=== PATIENT | male | born 1940 | race Caucasian/White ===

== ENCOUNTER 2018-10-31 09:11 | Inpatient (IN) ==
--- NOTE | 2018-10-31 09:16 | Emergency Department Note ---
Disposition Clinical Impression: Hypoxia Pneumonia Qualifiers: Pneumonia type: due to unspecified organism Laterality: right Lung location: unspecified part of lung Qualified Code(s): J18.9 - Pneumonia, unspecified org anism Disposition: Admitted As Inpatient Condition: Fair Referrals: Zain Salgado MD [Primary Care Provider] - Forms: ED Satisfaction Letter Time of Disposition: 11:08 General Adult HPI - General Stated complaint: SAMI,Shaking Time Seen by Provider: 10/31/18 09:15 Source: patient Mode of arrival: ambulatory Limitations: no limitations Nursing Notes Reviewed: Yes Vital Signs Reviewed: Yes - History of Present Illness HPI Narrative: Patient is a 78-year-old male who is presenting with shortness of breath. Sarah ent with known history of hypertension, CHF and hyperlipidemia. Patient states for the past 3 days he has been having cough without production, no fevers or chills. This morning he woke up and became very short of breath, this is positional as well as exertional, no associated chest pain. He did take a breathing treatment which seemed to help. He states that after this he became very jittery and shaky. He denies any lower leg swelling. He denies any nausea, vomiting or abdominal pain. No urinary or bowel changes. He does have history of bronchitis in the past, no history of smoking. No recent steroid or antibiotic use. No oxygen use at home. - Related Data Home Medications Medication Instructions Recorded Confirmed Albuterol Sulfate [Proair Hfa] 2 puff IH Q4H PRN 07/09/16 07/09/16 Amlodipine Besylate 10 mg PO 07/09/16 Aspirin [Lo-Dose Aspirin EC] 81 mg PO DAILY 07/09/16 07/09/16 Lactulose 10 - 20 gm PO DAILY 07/09/16 07/09/16 Morphine Sulfate ER (24 HR) 60 mg PO Q12H 07/09/16 07/09/16 [Morphine Sulfate ER] OxyCODONE/APAP 10/325 [Percocet 1 each PO Q6H PRN 07/09/16 07/09/16 10/325 MG] Zolpidem Tartrate 5 mg PO HS PRN 07/09/16 07/09/16 Allergies Allergy/AdvReac Type Severity Reaction Status Date / Time No Known Allergies Allergy Verified 10/09/17 23:06 All systems ED: reviewed and negative except as stated. Review of Systems: As Per HPI Constitutional: Denies: fever, chills, weakness Cardiovascular: Reports: dyspnea on exertion. Denies: chest pain, palpitations, syncope Respiratory: Reports: cough, dyspnea. Denies: wheezes, hemoptysis, sputum production Gastrointestinal: Denies: abdominal pain, nausea, vomiting Genitourinary: Denies: urgency Musculoskeletal: Denies: back pain Integumentary: Denies: rash Neurological: Denies: headache, weakness, confusion Endocrine: Denies: fatigue Past Medical History - Past Medical History Medical history: Reports: arthritis, COPD, hypertension, other Surgical history: Reports: orthopedic, other (Right knee arthroscopy; Left knee arthroscopy/total left knee replacement 2005; C5-C6 discectomy 2004; Left biceps tendon repair 2008) Psychiatric history: Reports: no psych history - Social History Smoking Status: Never smoker Smokeless Tobacco Status: No Alcohol use: Reports: none Drug use: Reports: none Physical Exam - General Limitations: no limitations General appearance: alert, in no apparent distress - Head Head exam: atraumatic, normocephalic, normal inspection - Eye Eye exam: Present: normal appearance, PERRL, EOMI - ENT ENT exam: normal exam, normal oropharynx, mucous membranes moist - Neck Neck exam: Present: normal inspection, full ROM, trachea midline - Chest Chest inspection: Present: normal inspection, symmetric chest wall rise - Respiratory Respiratory exam: Present: normal lung sounds bilaterally - Cardiovascular Cardiovascular exam: Present: normal rhythm, tachycardia - Abdominal Exam Abdominal exam: Present: soft, Non-Tender. Absent: tenderness, distention, guarding, rebound, rigidity - Extremities Exam Extremities exam: Present: normal capillary refill, pedal edema (1+ pitting edema to the lower extremities). Absent: calf tenderness - Expanded Lower Extremity Exam Neurovascular/Tendon exam: Absent: motor deficit, sensory deficit, tendon deficit - Neurological Exam Neurological exam: Present: alert, oriented X3 - Psychiatric Psychiatric exam: Present: normal affect, normal mood - Skin Skin exam: Present: warm, dry, intact, normal color Course Vital Signs Temperature 100.9 F H 10/31/18 09:17 Pulse Rate 126 10/31/18 09:17 Respiratory Rate 20 10/31/18 09:17 Blood Pressure 137/70 10/31/18 09:17 O2 Sat by Pulse Oximetry 94 10/31/18 09:17 Temperature 100.9 F H 10/31/18 09:17 Pulse Rate 110 10/31/18 10:26 Respiratory Rate 20 10/31/18 10:26 Blood Pressure 123/65 10/31/18 10:26 O2 Sat by Pulse Oximetry 93 10/31/18 10:26 Oxygen Delivery Oxygen Delivery Nasal Cannula Medical Decision Making - [facility] Narrative Medical decision making narrative: Patient is a 78-year-old male who is presenting with shortness of breath. On arrival, patient is tachycardic with a fever of 100.9. Otherwise in no acute distress. Patient does say he has a history of congestive heart failure for this reason we will proceed slowly with fluids, he will be given 500 mL at this time. Patient was also given a gram of Tylenol. On examination, patient is tachycardic but otherwise clear to auscultation bilaterally in no acute distress. Alert and oriented 3. Initial suspicion for pneumonia, versus ACS. CBC, BMP, troponin, chest x-ray, blood cultures, lactic and d-dimer were performed. While here in the ER, patient was sat up and walked to the restroom, at that point in time he would desaturate to 86% while on 2 L nasal cannula, as he does not wear oxygen at home, this is concerning. With 3 L nasal cannula, patient is now satting at 91-92%. Laboratory shows slight leukocytosis at 13.5, otherwise unremarkable with a negative troponin. EKG shows no acute ischemic changes. Chest x-ray does show concern for bilateral bronchopneumonia grease on the right than the left. Patient was started on azithromycin as well as Rocephin. No recent hospitalizations. Patient does agree to admission at this point in time. A second bolus of 500 and also was given. At this point in time, patient will be admitted to the hospitalist. They have accepted the patient at 1108. - Medical Records Medical records reviewed: Yes I reviewed the patient's medical records. - Lab Data Lab results reviewed: Yes I reviewed the patient's lab results. Result diagrams: 10/31/18 09:38 10/31/18 09:38 Lab Results 10/31/18 10/31/18 10/31/18 Range/Units 09:38 09:38 09:38 WBC 13.5 H (4.3-11.1) K/mcL RBC 4.71 (4.19-5.50) M/mcL Hgb 14.3 (12.9-16.9) g/dL Hct 43.6 (37.5-50.1) % MCV 92.6 (83.0-100.0) fL MCH 30.4 (28.0-33.3) pg MCHC 32.8 (31.6-35.5) g/dL RDW 14.2 (11.5-14.5) % Plt Count 145 (140-400) K/mcL MPV 11.8 (9.4-12.4) fL Immature Gran % 0.3 (0-4) % Seg Neutrophils % 89.1 % Lymphocytes % 4.2 % Monocytes % 6.0 % Eosinophils % 0.1 % Basophils % 0.3 % Neutrophils # 12.0 H (1.6-8.9) K/mcL Lymphocytes # 0.6 (0.6-4.6) K/mcL Monocytes # 0.8 (0.0-1.3) K/mcL Eosinophils # 0.0 (0.0-0.6) K/mcL Basophils # 0.0 (0.0-0.2) K/mcL D-Dimer (0-500) ng/mLFEU Sodium 141 (136-145) mEq/L Potassium 3.7 (3.5-5.1) mEq/L Chloride 107 (98-107) mEq/L Carbon Dioxide 25 (23-29) mEq/L BUN 21 (8-23) mg/dL Creatinine 1.08 (0.70-1.30) mg/dL Est GFR ( Amer) > 60 (> 60) Est GFR (Non-Af Amer) > 60 (> 60) BUN/Creatinine Ratio 19 (6-26) Glucose 123 H (70-105) mg/dL Calculated Osmolality 296 (280-300) Lactic Acid 1.2 (0.5-2.2) mmol/L Calcium 8.7 (8.6-10.3) mg/dL Total Bilirubin 0.9 (0.3-1.0) mg/dL Direct Bilirubin 0.2 (0.0-0.2) mg/dL Indirect Bilirubin 0.7 (0.0-1.2) mg/dL AST 18 (13-39) Units/L ALT 15 (7-52) Units/L Alkaline Phosphatase 28 L (34-104) Units/L Ammonia (16-53) mcmol/L Troponin I < 0.03 (< 0.04) ng/mL Serum Total Protein 6.8 (6.4-8.9) g/dL Albumin 3.9 (3.5-5.7) g/dL Globulin 2.9 (2.4-3.5) g/dL Albumin/Globulin Ratio 1.3 (1.1-2.2) Urine Color (Yellow) Urine Clarity (Clear) Urine pH (5.0-8.0) pH Units Ur Specific [place] (1.010-1.025) Urine Protein (Neg-Trace) mg/dL Urine Glucose (UA) (Normal) mg/dL Urine Ketones (Negative) mg/dL Urine Blood (Negative) Urine Nitrite (Negative) Urine Bilirubin (Negative) Urine Urobilinogen (Normal) mg/dL Ur Leukocyte Esterase (Negative) 10/31/18 10/31/18 10/31/18 Range/Units 09:38 09:38 09:57 WBC (4.3-11.1) K/mcL RBC (4.19-5.50) M/mcL Hgb (12.9-16.9) g/dL Hct (37.5-50.1) % MCV (83.0-100.0) fL MCH (28.0-33.3) pg MCHC (31.6-35.5) g/dL RDW (11.5-14.5) % Plt Count (140-400) K/mcL MPV (9.4-12.4) fL Immature Gran % (0-4) % Seg Neutrophils % % Lymphocytes % % Monocytes % % Eosinophils % % Basophils % % Neutrophils # (1.6-8.9) K/mcL Lymphocytes # (0.6-4.6) K/mcL Monocytes # (0.0-1.3) K/mcL Eosinophils # (0.0-0.6) K/mcL Basophils # (0.0-0.2) K/mcL D-Dimer 525 H (0-500) ng/mLFEU Sodium (136-145) mEq/L Potassium (3.5-5.1) mEq/L Chloride (98-107) mEq/L Carbon Dioxide (23-29) mEq/L BUN (8-23) mg/dL Creatinine (0.70-1.30) mg/dL Est GFR ( Amer) (> 60) Est GFR (Non-Af Amer) (> 60) BUN/Creatinine Ratio (6-26) Glucose (70-105) mg/dL Calculated Osmolality (280-300) Lactic Acid (0.5-2.2) mmol/L Calcium (8.6-10.3) mg/dL Total Bilirubin (0.3-1.0) mg/dL Direct Bilirubin (0.0-0.2) mg/dL Indirect Bilirubin (0.0-1.2) mg/dL AST (13-39) Units/L ALT (7-52) Units/L Alkaline Phosphatase (34-104) Units/L Ammonia 40 (16-53) mcmol/L Troponin I (< 0.04) ng/mL Serum Total Protein (6.4-8.9) g/dL Albumin (3.5-5.7) g/dL Globulin (2.4-3.5) g/dL Albumin/Globulin Ratio (1.1-2.2) Urine Color Yellow (Yellow) Urine Clarity Clear (Clear) Urine pH 5.0 (5.0-8.0) pH Units Ur Specific [place] 1.027 H (1.010-1.025) Urine Protein Negative (Neg-Trace) mg/dL Urine Glucose (UA) Normal (Normal) mg/dL Urine Ketones Negative (Negative) mg/dL Urine Blood Negative (Negative) Urine Nitrite Negative (Negative) Urine Bilirubin Negative (Negative) Urine Urobilinogen Normal (Normal) mg/dL Ur Leukocyte Esterase Negative (Negative) - Radiology Data Radiology results reviewed: Yes I reviewed the patient's radiology results. Chest X-Ray 10/31/18 09:33 IMPRESSION: 1. Stable mild pulmonary hyperinflation which may relate to COPD. 2. Bilateral asymmetric mild peribronchial opacities suggesting bronchopneumonia more prominent on the right. No lobar pneumonia. 3. Stable calcified pleural plaques on the left which may relate to history of asbestos exposure or possible trauma. D/ / 10/31/2018 10:51:50 Gordon Andino MD / [facility] Interpreting Provider: Gordon Andino MD - EKG Data EKG #1 EKG attestation: Yes I reviewed and interpreted this EKG. EKG results narrative: Patient's EKG performed at 0 925 ventricular rate of 117, regular rhythm, normal axis, no ST segment elevation or depression, there are T-wave changes in lead V5 and V6 which are new from old EKG performed at 2017.
[2018-10-31] MEDS ORDERED: 0.9 % Sodium Chloride 500 ML IVC ONE ×2 (09:35→10:51)
[2018-10-31 09:54] LABS: Basophils % 0.3 %; Eosinophils % 0.1 %; Hematocrit 43.6 % (37.5-50.1); Hemoglobin 14.3 g/dL (12.9-16.9); Immature Granulocytes % 0.3 % (0-4); Lymphocytes # 0.6 K/mcL (0.6-4.6); Lymphocytes % 4.2 %; Mean Corpuscular HGB Conc 32.8 g/dL (31.6-35.5); Mean Corpuscular Hemoglobin 30.4 pg (28.0-33.3); Mean Corpuscular Volume 92.6 fL (83.0-100.0); Mean Platelet Volume 11.8 fL (9.4-12.4); Monocytes # 0.8 K/mcL (0.0-1.3); Platelet Count 145 K/mcL (140-400); Red Blood Count 4.71 M/mcL (4.19-5.50); Red Cell Distribution Width 14.2 % (11.5-14.5); Segmented Neutrophils % 89.1 %; White Blood Count 13.5 K/mcL (4.3-11.1)
[2018-10-31 10:23] LABS: Bilirubin,Urine Negative (Negative); Blood,Urine Negative (Negative); Clarity,Urine Clear (Clear); Color,Urine Yellow (Yellow); Glucose,Urine (UA) Normal (Normal); Ketones,Urine Negative (Negative); Leukocyte Esterase,Urine Negative (Negative); Nitrite,Urine Negative (Negative); Protein,Urine Negative (Neg-Trace); Specific Gravity,Urine 1.027 (1.010-1.025); Urobilinogen,Urine Normal (Normal)
[2018-10-31 10:26] LABS: Alanine Aminotransferase 15 Units/L (7-52); Albumin 3.9 g/dL (3.5-5.7); Albumin/Globulin Ratio 1.3 (1.1-2.2); Alkaline Phosphatase 28 Units/L (34-104); Aspartate Amino Transferase 18 Units/L (13-39); BUN/Creatinine Ratio 19 (6-26); Bilirubin,Direct 0.2 mg/dL (0.0-0.2); Bilirubin,Indirect 0.7 mg/dL (0.0-1.2); Bilirubin,Total 0.9 mg/dL (0.3-1.0); Blood Urea Nitrogen 21 mg/dL (8-23); Calcium 8.7 mg/dL (8.6-10.3); Carbon Dioxide 25 mEq/L (23-29); Chloride 107 mEq/L (98-107); Globulin 2.9 g/dL (2.4-3.5); Glucose 123 mg/dL (70-105); Osmolality,Calculated 296 (280-300); Potassium 3.7 mEq/L (3.5-5.1); Sodium 141 mEq/L (136-145); Total Protein 6.8 g/dL (6.4-8.9); Troponin I < 0.03 ng/mL (< 0.04); eGFR For African Americans > 60 (> 60); eGFR For Non-African Americans > 60 (> 60)
--- NOTE | 2018-10-31 10:29 | Emergency Department Note ---
Disposition Clinical Impression: Hypoxia Disposition: Admitted As Inpatient Referrals: Zain Salgado MD [Primary Care Provider] - Time of Disposition: 10:28 General Adult HPI - General Chief complaint: ED Shortness of Breath/Dyspnea Stated complaint: SAMI,Shaking Time Seen by Provider: 10/31/18 09:15 Source: patient Limitations: no limitations Nursing Notes Reviewed: Yes Vital Signs Reviewed: Yes - History of Present Illness HPI Narrative: ED attending attestation note: I examined this patient and my medical decision-making was reviewed with the emergency medicine resident ILIANA LYONS. I agree with the documented findings, disposition and treatment plan as described except to the extent set forth below. For any procedures performed I was present for the critical portions, and for any EKGs performed and reviewed I have looked over the EKG and interpretations and discussed with provider Briefly: 78-year-old male presents with history of possible COPD does not see d octors very often and some shaking after he took a nebulizing treatment at home appears much other than stated age. Chest is clear he is tachycardic and slightly hypoxic at rest at 94. One went up to go to the bathroom he desatted into the mid 80s. Lactate pneumonia levels are normal. Patient is on lactulose. Patient's white count slightly elevated at 13.5 with no left shift. No anemia. Waiting for chemistry panel LFTs chest x-ray as well. Admission is anticipated. Providing 45 minutes critical care service for this patient. Disposition pending Pain Scale: 10 - Related Data Home Medications Medication Instructions Recorded Confirmed Albuterol Sulfate [Proair Hfa] 2 puff IH Q4H PRN 07/09/16 07/09/16 Amlodipine Besylate 10 mg PO 07/09/16 Aspirin [Lo-Dose Aspirin EC] 81 mg PO DAILY 07/09/16 07/09/16 Lactulose 10 - 20 gm PO DAILY 07/09/16 07/09/16 Morphine Sulfate ER (24 HR) 60 mg PO Q12H 07/09/16 07/09/16 [Morphine Sulfate ER] OxyCODONE/APAP 10/325 [Percocet 1 each PO Q6H PRN 07/09/16 07/09/16 10/325 MG] Zolpidem Tartrate 5 mg PO HS PRN 07/09/16 07/09/16 Allergies Allergy/AdvReac Type Severity Reaction Status Date / Time No Known Allergies Allergy Verified 10/09/17 23:06 Past Medical History - Past Medical History Medical history: Reports: arthritis, COPD, hypertension Surgical history: Reports: orthopedic, other (Right knee arthroscopy; Left knee arthroscopy/total left knee replacement 2005; C5-C6 discectomy 2004; Left biceps tendon repair 2008) Psychiatric history: Reports: no psych history - Social History Smoking Status: Never smoker Smokeless Tobacco Status: No Alcohol use: Reports: none Drug use: Reports: none Physical Exam - General Limitations: no limitations General appearance: alert Course Vital Signs Temperature 100.9 F H 10/31/18 09:17 Pulse Rate 126 10/31/18 09:17 Respiratory Rate 20 10/31/18 09:17 Blood Pressure 137/70 10/31/18 09:17 O2 Sat by Pulse Oximetry 94 10/31/18 09:17 Temperature 100.9 F H 10/31/18 09:17 Pulse Rate 110 10/31/18 10:26 Respiratory Rate 20 10/31/18 10:26 Blood Pressure 123/65 10/31/18 10:26 O2 Sat by Pulse Oximetry 93 10/31/18 10:26 Oxygen Delivery Oxygen Delivery Nasal Cannula Medical Decision Making - Lab Data Result diagrams: 10/31/18 09:38 10/31/18 09:38 Lab Results 10/31/18 10/31/18 10/31/18 Range/Units 09:38 09:38 09:38 WBC 13.5 H (4.3-11.1) K/mcL RBC 4.71 (4.19-5.50) M/mcL Hgb 14.3 (12.9-16.9) g/dL Hct 43.6 (37.5-50.1) % MCV 92.6 (83.0-100.0) fL MCH 30.4 (28.0-33.3) pg MCHC 32.8 (31.6-35.5) g/dL RDW 14.2 (11.5-14.5) % Plt Count 145 (140-400) K/mcL MPV 11.8 (9.4-12.4) fL Immature Gran % 0.3 (0-4) % Seg Neutrophils % 89.1 % Lymphocytes % 4.2 % Monocytes % 6.0 % Eosinophils % 0.1 % Basophils % 0.3 % Neutrophils # 12.0 H (1.6-8.9) K/mcL Lymphocytes # 0.6 (0.6-4.6) K/mcL Monocytes # 0.8 (0.0-1.3) K/mcL Eosinophils # 0.0 (0.0-0.6) K/mcL Basophils # 0.0 (0.0-0.2) K/mcL Sodium 141 (136-145) mEq/L Potassium 3.7 (3.5-5.1) mEq/L Chloride 107 (98-107) mEq/L Carbon Dioxide 25 (23-29) mEq/L BUN 21 (8-23) mg/dL Creatinine 1.08 (0.70-1.30) mg/dL Est GFR ( Amer) > 60 (> 60) Est GFR (Non-Af Amer) > 60 (> 60) BUN/Creatinine Ratio 19 (6-26) Glucose 123 H (70-105) mg/dL Calculated Osmolality 296 (280-300) Lactic Acid 1.2 (0.5-2.2) mmol/L Calcium 8.7 (8.6-10.3) mg/dL Total Bilirubin 0.9 (0.3-1.0) mg/dL Direct Bilirubin 0.2 (0.0-0.2) mg/dL Indirect Bilirubin 0.7 (0.0-1.2) mg/dL AST 18 (13-39) Units/L ALT 15 (7-52) Units/L Alkaline Phosphatase 28 L (34-104) Units/L Ammonia (16-53) mcmol/L Troponin I < 0.03 (< 0.04) ng/mL Serum Total Protein 6.8 (6.4-8.9) g/dL Albumin 3.9 (3.5-5.7) g/dL Globulin 2.9 (2.4-3.5) g/dL Albumin/Globulin Ratio 1.3 (1.1-2.2) Urine Color (Yellow) Urine Clarity (Clear) Urine pH (5.0-8.0) pH Units Ur Specific [place] (1.010-1.025) Urine Protein (Neg-Trace) mg/dL Urine Glucose (UA) (Normal) mg/dL Urine Ketones (Negative) mg/dL Urine Blood (Negative) Urine Nitrite (Negative) Urine Bilirubin (Negative) Urine Urobilinogen (Normal) mg/dL Ur Leukocyte Esterase (Negative) 10/31/18 10/31/18 Range/Units 09:38 09:57 WBC (4.3-11.1) K/mcL RBC (4.19-5.50) M/mcL Hgb (12.9-16.9) g/dL Hct (37.5-50.1) % MCV (83.0-100.0) fL MCH (28.0-33.3) pg MCHC (31.6-35.5) g/dL RDW (11.5-14.5) % Plt Count (140-400) K/mcL MPV (9.4-12.4) fL Immature Gran % (0-4) % Seg Neutrophils % % Lymphocytes % % Monocytes % % Eosinophils % % Basophils % % Neutrophils # (1.6-8.9) K/mcL Lymphocytes # (0.6-4.6) K/mcL Monocytes # (0.0-1.3) K/mcL Eosinophils # (0.0-0.6) K/mcL Basophils # (0.0-0.2) K/mcL Sodium (136-145) mEq/L Potassium (3.5-5.1) mEq/L Chloride (98-107) mEq/L Carbon Dioxide (23-29) mEq/L BUN (8-23) mg/dL Creatinine (0.70-1.30) mg/dL Est GFR ( Amer) (> 60) Est GFR (Non-Af Amer) (> 60) BUN/Creatinine Ratio (6-26) Glucose (70-105) mg/dL Calculated Osmolality (280-300) Lactic Acid (0.5-2.2) mmol/L Calcium (8.6-10.3) mg/dL Total Bilirubin (0.3-1.0) mg/dL Direct Bilirubin (0.0-0.2) mg/dL Indirect Bilirubin (0.0-1.2) mg/dL AST (13-39) Units/L ALT (7-52) Units/L Alkaline Phosphatase (34-104) Units/L Ammonia 40 (16-53) mcmol/L Troponin I (< 0.04) ng/mL Serum Total Protein (6.4-8.9) g/dL Albumin (3.5-5.7) g/dL Globulin (2.4-3.5) g/dL Albumin/Globulin Ratio (1.1-2.2) Urine Color Yellow (Yellow) Urine Clarity Clear (Clear) Urine pH 5.0 (5.0-8.0) pH Units Ur Specific [place] 1.027 H (1.010-1.025) Urine Protein Negative (Neg-Trace) mg/dL Urine Glucose (UA) Normal (Normal) mg/dL Urine Ketones Negative (Negative) mg/dL Urine Blood Negative (Negative) Urine Nitrite Negative (Negative) Urine Bilirubin Negative (Negative) Urine Urobilinogen Normal (Normal) mg/dL Ur Leukocyte Esterase Negative (Negative)
[2018-10-31] MEDS ORDERED: cefTRIAXone 1,000 MG in Water for inj. (sterile) 10 ML IVP ONE (10:50)
[2018-10-31] MEDS ORDERED: Azithromycin 500 MG in 0.9 % Sodium Chloride 250 ML IVPB ONE (10:50)
[2018-10-31] MEDS ORDERED: Ondansetron 4 MG/2 ML VIAL IVP PRN (11:35)
[2018-10-31] MEDS ORDERED: *HR* HYDROcodone/Acet 5/325 mg TABLET PO PRN (11:35)
[2018-10-31] MEDS ORDERED: Acetaminophen 325 MG TABLET PO PRN (11:35)
[2018-10-31] MEDS ORDERED: Naloxone 0.4 MG/ML INJ IVP PRN (11:35)
[2018-10-31] MEDS ORDERED: 0.9 % Sodium Chloride 1,000 ML IVC ONE (11:37)
--- NOTE | 2018-10-31 11:57 | Internal Med History&Physical ---
<Yuriy Monique A - Last Filed: 10/31/18 13:09> Date of Encounter: 10/31/18 Time of Encounter: 11:55 Internal Medicine - H&P: HPI Chief complaint: SAMI, shaking History of present illness: Mr. Harris is a 78 year old male with past medical history of COPD, HTN, CHF, HLD, and arthritis presents for shaking and distress in breathing. Pt states he woke up this morning with symptoms of shortness of breath and shaking. Pt states he does not like hospitals and was reluctant to come in. Family convinced him, present for interview. Family does admit he has developed an involuntary tremor of his left hand recently (family hx of Parkinson), but his shaking was more than the tremor. Pt admits feeling feverish, shaking, short of breath at times, and a nonproductive cough. Denies ever experiencing recent chest pain. Pt denies headaches, visual or hearing changes. Admits dysphagia increasing within recent years, states he is interested in an EGD during his next colonoscopy- pt gets colonoscopy q5 yrs for strong family hx of colon CA. ROS otherwise unremarkable. Never smoker, no home O2. 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 Seen recently for bronchitis that "I get every year". ED Course: Pt presented febrile at 100.9F, HR:126, RR:20, BP:137/70, SpO2:94% (RA). Given APAP and 500mL IVF in ED. Leukocytosis of 13.5. Lactic 1.2, Troponin negative, UA negative. CXR showed infiltrate consistent with bilateral bronchopneumonia, more noted in R lung field; increased pulmonary vasculature; and respiratory signs consistent asbestos or trauma injury . Pt meets 3/4 SIRS criteria, further evaluation for source to follow. Pt stood to urinate in ED and desat into 80s. Pt seen and examined. Appears stable at this time, complaints of dyspnea, dry cough. States shaking has resolved at this time. Rhonchi heard lower lung avery b/l consistent with CXR. Agreeable to stay for treatment. Past Medical Hx: COPD, hypertension, HFrEF, HLD, arthritis Past Surgical Hx: orthopedic: Right knee arthroscopy; Left knee arthroscopy/total left knee replacement 2005; C5-C6 discectomy 2004; Left biceps tendon repair 2008 Social Hx: never smoker, denies alcohol or drug use; history of welding/boiler work x50 years Family Hx: strong history of colon cancer (mother, father, brother x2), Parkinson Previous Cardiac Workup: Echo 03/22/17, LVEF 50-55%, mild diastolic dysfunction, mild LVH Past Med Surg Social Fam HX - Past Medical History Medical history: arthritis, COPD, hypertension Additional medical history: chronic back pain Psychiatric history: no psych history - Past Surgical History Surgical History: orthopedic, other (Right knee arthroscopy; Left knee arthroscopy/total left knee replacement 2005; C5-C6 discectomy 2004; Left biceps tendon repair 2008) Additional surgical history: L knee. neck - Social History Smoking Status: Never smoker Smokeless Tobacco Status: No Alcohol use: none Drug use: none - Family History Mother Living Status: Age at : 66 Cause of : CA Hx Family Cancer: Yes Hx Family Medical Disorders: Yes Internal Medicine - H&P: Meds Albuterol Sulfate [Proair Hfa] 2 puff IH Q4H PRN 07/09/16 [History] Amlodipine Besylate 10 mg PO DAILY 07/09/16 [History] Aspirin [Lo-Dose Aspirin EC] 81 mg PO DAILY 07/09/16 [History] Lactulose 10 - 20 gm PO DAILY PRN 07/09/16 [History] OxyCODONE/APAP 10/325 [Percocet 10/325 MG] 1 each PO Q6H PRN 07/09/16 [History] Zolpidem Tartrate 5 mg PO HS PRN 07/09/16 [History] Atorvastatin [Lipitor] 40 mg PO DAILY 10/31/18 [History] Spironolactone [Aldactone] 25 mg PO DAILY 10/31/18 [History] Allergy/AdvReac Type Severity Reaction Status Date / Time No Known Allergies Allergy Verified 10/09/17 23:06 All Systems PM: A 10-system review of systems was performed and is negative for pertinent findings except as documented above in the HPI. Review of systems: -see below - Constitutional Constitutional: as per HPI, fever(s), no fatigue, no lethargy, no weakness Additional comments: shaking - EENT Eyes: no blurry vision, no change in vision, no discharge, no pain, no photop hobia Ears: no ear discharge, no ear pain, no tinnitus Nose, mouth and throat: dysphagia, no nasal discharge, no neck pain, no sore throat - Cardiovascular Cardiovascular ROS IM: dyspnea, no chest pain, no diaphoresis, no edema, no lightheadedness, no palpitations - Respiratory Respiratory: as per HPI, cough (dry), dyspnea, no hemoptysis, no wheezing - Gastrointestinal Gastrointestinal: dysphagia, no abdominal pain, no change in bowel habits, no change in stool character, no coffee ground emesis, no diarrhea, no hematemesis, no nausea, no vomiting - Genitourinary Genitourinary ROS male: no dysuria, no hematuria - Musculoskeletal Musculoskeletal ROS IM: back pain, no numbness, no tingling - Integumentary Integumentary IM: no rash - Neurological Neurological ROS: no abnormal hearing, no abnormal movements, no abnormal speech, no dizziness, no numbness, no tingling, no weakness - Endocrine Endocrine IM: no fatigue, no polyphagia, no polyuria - Constitutional Vitals: Temp Pulse Resp BP Pulse Ox 99.7 F H 96 18 123/67 93 10/31/18 11:40 10/31/18 11:40 10/31/18 11:40 10/31/18 11:40 10/31/18 11:40 General appearance: Present: A&O X 3, no acute distress, obese Exam: appears younger than give age - Head Head exam: Present: atraumatic, normal inspection, normocephalic - Eye Eye exam: Present: EOMI, normal appearance, PERRL, sclera anicteric Pupils: Present: normal accommodation, PERRL - ENT ENT exam: Present: mucous membranes moist, normal exam, normal oropharynx - Neck Neck exam general surgery: Present: normal inspection, trachea midline. Absent: tenderness, nuchal rigidity - Respiratory Respiratory exam: Present: CTAB, rhonchi (b/l in lower lung avery), wheezes (slight expiratory wheeze right side). Absent: accessory muscle use, chest wall tenderness, respiratory distress - Cardiovascular Cardiovascular exam: Present: RRR, +S1, +S2, systolic murmur. Absent: +S3, +S4 - GI/Abdominal GI/Abdominal exam: Present: firm (pt not wholely coperative with exam), normal bowel sounds, no peritoneal signs. Absent: hepatomegaly, mass, pulsatile mass, rebound, splenomegaly, tenderness - Rectal Rectal exam: Present: deferred - Back Exam Back exam: Present: normal inspection. Absent: rash noted, vertebral tenderness - Neurological Exam Neurological exam: Present: alert, CN II-XII intact, oriented X3, no focal deficits, strengths equal and symetr throughout. Absent: motor sensory deficit, facial droop, speech deficit - Psychiatric Psychiatric exam: Present: normal affect, normal mood. Absent: flat affect Internal Med - H&P Results - Labs CBC & Chem 7: 10/31/18 09:38 10/31/18 09:38 Labs: Short CBC 10/31/18 Range/Units 09:38 WBC 13.5 H (4.3-11.1) K/mcL Hgb 14.3 (12.9-16.9) g/dL Hct 43.6 (37.5-50.1) % Plt Count 145 (140-400) K/mcL Neutrophils # 12.0 H (1.6-8.9) K/mcL BMP 10/31/18 09:38 Sodium 141 Potassium 3.7 Chloride 107 Carbon Dioxide 25 BUN 21 Creatinine 1.08 Glucose 123 H Calcium 8.7 Cardiac Enzymes 10/31/18 Range/Units 09:38 Troponin I < 0.03 (< 0.04) ng/mL Liver Function 10/31/18 Range/Units 09:38 Total Bilirubin 0.9 (0.3-1.0) mg/dL Direct Bilirubin 0.2 (0.0-0.2) mg/dL AST 18 (13-39) Units/L ALT 15 (7-52) Units/L Alkaline Phosphatase 28 L (34-104) Units/L Albumin 3.9 (3.5-5.7) g/dL Urine 10/31/18 Range/Units 09:57 Urine Color Yellow (Yellow) Urine Clarity Clear (Clear) Urine pH 5.0 (5.0-8.0) pH Units Ur Specific [place] 1.027 H (1.010-1.025) Urine Protein Negative (Neg-Trace) mg/dL Urine Glucose (UA) Normal (Normal) mg/dL - Impressions ITS Impressions Chest X-Ray 10/31/18 09:33 IMPRESSION: 1. Stable mild pulmonary hyperinflation which may relate to COPD. 2. Bilateral asymmetric mild peribronchial opacities suggesting bronchopneumonia more prominent on the right. No lobar pneumonia. 3. Stable calcified pleural plaques on the left which may relate to history of asbestos exposure or possible trauma. D/ : / 10/31/2018 10:51:50 Gordon Andino MD / [email or web address] Interpreting Provider: Gordon Andino MD - Assessment and Plan (1) Sepsis Current Visit: Yes Status: Acute Assessment and plan: -pt with leukocytosis of 13.5, temperature of 100.9F, HR 126, RR 20 presents for shaking and shortness of breath -highly suspecting PNA (viral or bacterial), with other consideration of bacteremia; less likely UTI or meningitis; SOB not attributed to COPD or CHF exacerbation at this time -rhonchi heard lower lung avery with R exp wheezing likely from PNA than CHF exac -history as welder explosion/boiler worker x50 years, never smoker -stood to urinate in ED and desat into 80s -Echo 03/22/17: LVEF 50-55%, mild diastolic dysfunction, mild LVH -EKG sinus tachycardia without ischemia -CXR showed infiltrate consistent with bilateral bronchopneumonia, more noted in R lung field; increased pulmonary vasculature; and respiratory signs consistent asbestos or trauma injury -Leukocytosis of 13.5 -Lactic 1.2 -Troponin negative x1 -UA negative -BMP unremarkable; Cr 1.08 -await legionella and strep antigens -procal ordered, may stop abx if negative -blood cultures pending -continue supplemental O2 -continue IVF to complete sepsis bolus -collect second troponin -cardiac diet -morning CBC, BMP, Mg -start azithromycin and rocephin for likely CAP -may consider further workup for CHF exac/COPD exac if respiratory status fails to improve or further decompensates -FULL CODE Qualifiers: Sepsis type: sepsis due to unspecified organism Sepsis acute organ dysfunction status: without acute organ dysfunction Qualified Code(s): A41.9 - Sepsis, unspecified organism (2) Pneumonia Current Visit: Yes Status: Acute Assessment and plan: -related to the above -likely CAP Qualifiers: Pneumonia type: due to unspecified organism Laterality: right Lung location: unspecified part of lung Qualified Code(s): J18.9 - Pneumonia, unspecified organism (3) COPD (chronic obstructive pulmonary disease) Current Visit: Yes Status: Chronic Assessment and plan: -history as welder explosion/boiler worker x50 years, never smoker, no home O2 -stood to urinate in ED and desat to 80s% SpO2 -CXR showed infiltrate consistent with bilateral bronchopneumonia, more noted in R lung field; increased pulmonary vasculature; and respiratory signs consistent asbestos or trauma injury -rhonchi heard lower lung avery with R exp wheezing likely from PNA than COPD exac; unrelated to presentation -may use home albuterol inhaler -continue 3L O2 at this time to keep SpO2 >90% Qualifiers: COPD type: unspecified COPD Qualified Code(s): J44.9 - Chronic obstructive pulmonary disease, unspecified (4) CHF (congestive heart failure) Current Visit: Yes Status: Chronic Assessment and plan: -pt does not appear to be in a CHF exacerbation at this time -rhonchi heard lower lung avery with R exp wheezing likely from PNA than CHF exac -Echo 03/22/17, LVEF 50-55%, mild diastolic dysfunction, mild LVH -EKG sinus tachycardia without ischemia -CXR showed infiltrate consistent with bilateral bronchopneumonia, more noted in R lung field -troponin negative x1, will collect another for reassurance -may consider further workup if pt does not subsequently improve or respiratory status decompensates -cardiac diet Qualifiers: Heart failure type: unspecified Heart failure chronicity: chronic Qualified Code(s): I50.9 - Heart failure, unspecified (5) HTN (hypertension) Current Visit: Yes Status: Chronic Assessment and plan: -hold antiHTN medications at this time as pt is normotensive and septic -advise if pt becomes HTN, will consider hydralazine at that time -continue to monitor vitals Qualifiers: Hypertension type: essential hypertension Qualified Code(s): I10 - Essential (primary) hypertension (6) HLD (hyperlipidemia) Current Visit: Yes Status: Chronic Assessment and plan: -may continue home meds Qualifiers: Hyperlipidemia type: unspecified Qualified Code(s): E78.5 - Hyperlipidemia, unspecified (7) Arthritis Current Visit: Yes Status: Chronic Assessment and plan: -continue home medications (8) DVT prophylaxis Current Visit: Yes Status: Acute Assessment and plan: -consider heparin gtt, vs lovenox, vs SCD -pt may ambulate with assistance, mindful of SpO2 - Time Spent With Patient Total time spent is greater than 50% in coordination of care (as documented) at patient's floor/unit and/or counseling patient: <Duarte Campuzano - Last Filed: 10/31/18 15:10> Date of Encounter: 10/31/18 Internal Medicine - H&P: HPI History of present illness: Mr. Harris is a 78 year old male All Systems PM: A 10-system review of systems was performed and is negative for pertinent findings except as documented above in the HPI. - Constitutional Vitals: Temp Pulse Resp BP Pulse Ox 98.4 F 97 18 138/77 92 10/31/18 12:53 10/31/18 12:40 10/31/18 12:40 10/31/18 12:40 10/31/18 12:40 Internal Med - H&P Results - Labs CBC & Chem 7: 10/31/18 09:38 10/31/18 09:38 Labs: Short CBC 10/31/18 Range/Units 09:38 WBC 13.5 H (4.3-11.1) K/mcL Hgb 14.3 (12.9-16.9) g/dL Hct 43.6 (37.5-50.1) % Plt Count 145 (140-400) K/mcL Neutrophils # 12.0 H (1.6-8.9) K/mcL BMP 10/31/18 09:38 Sodium 141 Potassium 3.7 Chloride 107 Carbon Dioxide 25 BUN 21 Creatinine 1.08 Glucose 123 H Calcium 8.7 Cardiac Enzymes 10/31/18 Range/Units 09:38 Troponin I < 0.03 (< 0.04) ng/mL Liver Function 10/31/18 Range/Units 09:38 Total Bilirubin 0.9 (0.3-1.0) mg/dL Direct Bilirubin 0.2 (0.0-0.2) mg/dL AST 18 (13-39) Units/L ALT 15 (7-52) Units/L Alkaline Phosphatase 28 L (34-104) Units/L Albumin 3.9 (3.5-5.7) g/dL Urine 10/31/18 Range/Units 09:57 Urine Color Yellow (Yellow) Urine Clarity Clear (Clear) Urine pH 5.0 (5.0-8.0) pH Units Ur Specific [place] 1.027 H (1.010-1.025) Urine Protein Negative (Neg-Trace) mg/dL Urine Glucose (UA) Normal (Normal) mg/dL - Impressions ITS Impressions Chest X-Ray 10/31/18 09:33 IMPRESSION: 1. Stable mild pulmonary hyperinflation which may relate to COPD. 2. Bilateral asymmetric mild peribronchial opacities suggesting bronchopneumonia more prominent on the right. No lobar pneumonia. 3. Stable calcified pleural plaques on the left which may relate to history of asbestos exposure or possible trauma. D/ / 10/31/2018 10:51:50 Gordon Andino MD / [email or web address] Interpreting Provider: Gordon Andino MD - Assessment and Plan (1) Acute respiratory failure with hypoxia Current Visit: Yes Status: Acute (2) Sepsis Current Visit: Yes Status: Acute Qualifiers: Sepsis type: sepsis due to unspecified organism Sepsis acute organ dysfunction status: without acute organ dysfunction Qualified Code(s): A41.9 - Sepsis, unspecified organism (3) Pneumonia Current Visit: Yes Status: Suspected Qualifiers: Pneumonia type: due to Pneumococcus Laterality: right Lung location: unspecified part of lung Qualified Code(s): J13 - Pneumonia due to Streptococcus pneumoniae (4) CHF (congestive heart failure) Current Visit: Yes Status: Chronic Qualifiers: Heart failure type: diastolic Heart failure chronicity: chronic Qualified Code(s): I50.32 - Chronic diastolic (congestive) heart failure (5) HTN (hypertension) Current Visit: Yes Status: Chronic Qualifiers: Hypertension type: essential hypertension Qualified Code(s): I10 - Essential (primary) hypertension - Time Spent With Patient Total time spent is greater than 50% in coordination of care (as documented) at patient's floor/unit and/or counseling patient: - Attending Attestation The history, physical exam, and medical decision making was performed by the medical student either while I was physically present and actively involved or I personally re-performed the exam and medical decision making. I have verified the accuracy of the medical student's documentation with regards to the history, physical exam findings, and medical decision making on 10/31/18. Mr Harris is 78 y/o male with hx of chronic diastolic CHF, COPD and HTN p resented to ED with fever and chills. He was evaluated and found to have pneumonia with sepsis. He was quite hypoxic with O2 sats in 80s on 2L when up to bathroom. He has felt warm. No GI issues. No issues. Exam: Alert. NC. EOMI. Mucus membranes dry. Neck supple. Heart reg with systolic murmur. Lungs with bibasilar rales R worse than L. Abd soft and nontender. Move all extremities. Pulses palpable. No rash. I/P 1. Sepsis due to pneumonia - 2. Pneumonia -IV abx, oxygen 3. Hypoxic resp failure 4. HTN Further diagnoses and plan as above.
[2018-10-31] MEDS: *HR* OxyCODONE Immed Rel 5 MG TABLET PO PRN (19:48)
[2018-11-01] MEDS: *HR* Heparin 5,000 UNIT/ML VIAL SQ SCH ×2 (05:05→18:14)
[2018-11-01 07:07] LABS: Basophils % 0.3 %; Eosinophils # 0.1 K/mcL (0.0-0.6); Eosinophils % 0.6 %; Hematocrit 40.2 % (37.5-50.1); Hemoglobin 13.2 g/dL (12.9-16.9); Immature Granulocytes % 0.3 % (0-4); Lymphocytes # 1.6 K/mcL (0.6-4.6); Lymphocytes % 12.4 %; Mean Corpuscular HGB Conc 32.8 g/dL (31.6-35.5); Mean Corpuscular Hemoglobin 30.9 pg (28.0-33.3); Mean Corpuscular Volume 94.1 fL (83.0-100.0); Monocytes % 7.8 %; Platelet Count 139 K/mcL (140-400); Red Blood Count 4.27 M/mcL (4.19-5.50); Red Cell Distribution Width 14.3 % (11.5-14.5); Segmented Neutrophils % 78.6 %; White Blood Count 12.7 K/mcL (4.3-11.1)
[2018-11-01 07:24] LABS: BUN/Creatinine Ratio 18 (6-26); Blood Urea Nitrogen 16 mg/dL (8-23); Calcium 8.7 mg/dL (8.6-10.3); Carbon Dioxide 23 mEq/L (23-29); Chloride 105 mEq/L (98-107); Glucose 94 mg/dL (70-105); Osmolality,Calculated 285 (280-300); Potassium 3.6 mEq/L (3.5-5.1); Sodium 137 mEq/L (136-145); eGFR For African Americans > 60 (> 60); eGFR For Non-African Americans > 60 (> 60)
--- NOTE | 2018-11-01 08:01 | Internal Med Progress Note ---
<KemiPrashant Ferro - Last Filed: 11/01/18 15:20> Hospitalist Progress Note - Encounter Date of Encounter: 11/01/18 - Exam Vitals: Temp Pulse Resp BP Pulse Ox 97.7 F 80 16 146/79 95 11/01/18 11:13 11/01/18 11:13 11/01/18 11:13 11/01/18 11:13 11/01/18 11:13 - Assessment and Plan (1) Pneumonia Current Visit: Yes Status: Suspected (2) Sepsis Current Visit: Yes Status: Resolved (3) CHF (congestive heart failure) Current Visit: Yes Status: Chronic (4) HTN (hypertension) Current Visit: Yes Status: Chronic (5) Acute respiratory failure with hypoxia Current Visit: Yes Status: Acute - Time Spent with Patient Total time spent is greater than 50% in coordination of care (as documented) at patient's floor/unit and/or counseling patient: Internal Medicine: Result - Labs CBC & Chem 7: 11/01/18 06:41 11/01/18 06:41 Labs: Short CBC 11/01/18 Range/Units 06:41 WBC 12.7 H (4.3-11.1) K/mcL Hgb 13.2 (12.9-16.9) g/dL Hct 40.2 (37.5-50.1) % Plt Count 139 L (140-400) K/mcL Neutrophils # 10.0 H (1.6-8.9) K/mcL BMP 11/01/18 06:41 Sodium 137 Potassium 3.6 Chloride 105 Carbon Dioxide 23 BUN 16 Creatinine 0.87 Glucose 94 Calcium 8.7 Cardiac Enzymes 10/31/18 Range/Units 16:28 Troponin I 0.04 H* (< 0.04) ng/mL - ABG Interpretation ABG results: PT/INR, D-dimer D-Dimer 525 ng/mLFEU (0-500) H 10/31/18 09:38 Consult Discharge Plan - Plan Referrals: Zain Salgado MD [Primary Care Provider] - - Attending Attestation I examined this patient and my medical decision-making was reviewed with the resident physician. I agree with the documented findings, disposition and treatment plan as described except to the extent set forth below. <Dianna Early - Last Filed: 11/01/18 15:35> Hospitalist Progress Note - Encounter Date of Encounter: 11/01/18 Time of Encounter: 08:00 - Subjective Interval History: Mr. Harris was seen and evaluated at the bedside this morning. He reports that he is feeling much better today, and endorses no new complaints or concerns. He denies any fevers, chills, or increased sputum production. Nursing staff reports no significant overnight events. - Exam Vitals: Temp Pulse Resp BP Pulse Ox 98.0 F 85 18 132/85 93 11/01/18 07:39 11/01/18 07:39 11/01/18 07:39 11/01/18 07:39 11/01/18 07:39 Exam: GENERAL: Well-developed, well-nourished adult male resting in bed comfortably and in no acute distress. HEENT: Atraumatic and normocephalic. Nasal cannula in place. CARDIOVASCULAR: Regular rate and rhythm. S1 and S2 present. Systolic murmur present. RESPIRATORY: Diffusely decreased breath sounds bilaterally with fine crackles in bilateral posterior lung avery. Chest rises and falls symmetrically without accessory muscle use. GASTROINTESTINAL: Abdomen is soft, nontender, nondistended. EXTREMITIES: No clubbing, cyanosis, or edema. SKIN: Warm, dry, and intact. NEUROLOGIC: Alert and oriented x3. Patient is cooperative with exam and answers questions appropriately. No apparent focal deficits. PSYCHIATRIC: Appropriate mood and affect. - Assessment and Plan (1) Sepsis Current Visit: Yes Status: Resolved Assessment and Plan: Present on admission, likely secondary to pneumonia. Resolved. (2) Pneumonia Current Visit: Yes Status: Suspected Assessment and Plan: Chest x-ray performed on 10/31/2018 demonstrated bilateral asymmetric mild peribronchial opacity suggesting bronchopneumonia more prominent on the right. Patient was started on antibiotic therapy with azithromycin and Rocephin yesterday, with good improvement in symptoms. Patient has been afebrile, and leukocytosis is improving. - Continue antibiotic therapy with azithromycin and Rocephin. Anticipate transition to oral therapy tomorrow. - Repeat and monitor daily laboratory studies. (3) Acute respiratory failure with hypoxia Current Visit: Yes Status: Acute Assessment and Plan: Likely secondary to pneumonia. Patient is maintaining appropriate oxygen saturation on 3L NC. - Continue supplemental oxygen with weening as tolerated. - Incentive spirometry. - Further plan as above for pneumonia. (4) COPD (chronic obstructive pulmonary disease) Current Visit: Yes Status: Chronic Assessment and Plan: History of COPD. - Continue supplemental oxygen as above. - Continue use of albuterol inhaler PRN. (5) CHF (congestive heart failure) Current Visit: Yes Status: Chronic Assessment and Plan: History of congestive heart failure, with LVEF 50-55% as of echocardiogram on 03/22/2017. Patient does not appear to be having an acute exacerbation, and appears to be euvolemic. - Continue to monitor strict I's and O's and daily weights. - Anticipate resuming home medication of spironolactone tomorrow. (6) DVT prophylaxis Current Visit: Yes Status: Acute Assessment and Plan: - Heparin 5000units Q12H. - Time Spent with Patient Total time spent is greater than 50% in coordination of care (as documented) at patient's floor/unit and/or counseling patient: Internal Medicine: Result - Labs CBC & Chem 7: 11/01/18 06:41 11/01/18 06:41 Labs: Short CBC 10/31/18 11/01/18 Range/Units 09:38 06:41 WBC 13.5 H 12.7 H (4.3-11.1) K/mcL Hgb 14.3 13.2 (12.9-16.9) g/dL Hct 43.6 40.2 (37.5-50.1) % Plt Count 145 139 L (140-400) K/mcL Neutrophils # 12.0 H 10.0 H (1.6-8.9) K/mcL BMP 10/31/18 11/01/18 09:38 06:41 Sodium 141 137 Potassium 3.7 3.6 Chloride 107 105 Carbon Dioxide 25 23 BUN 21 16 Creatinine 1.08 0.87 Glucose 123 H 94 Calcium 8.7 8.7 Cardiac Enzymes 10/31/18 10/31/18 Range/Units 09:38 16:28 Troponin I < 0.03 0.04 H* (< 0.04) ng/mL Liver Function 10/31/18 Range/Units 09:38 Total Bilirubin 0.9 (0.3-1.0) mg/dL Direct Bilirubin 0.2 (0.0-0.2) mg/dL AST 18 (13-39) Units/L ALT 15 (7-52) Units/L Alkaline Phosphatase 28 L (34-104) Units/L Albumin 3.9 (3.5-5.7) g/dL Urine 10/31/18 Range/Units 09:57 Urine Color Yellow (Yellow) Urine Clarity Clear (Clear) Urine pH 5.0 (5.0-8.0) pH Units Ur Specific [place] 1.027 H (1.010-1.025) Urine Protein Negative (Neg-Trace) mg/dL Urine Glucose (UA) Normal (Normal) mg/dL - ABG Interpretation ABG results: PT/INR, D-dimer D-Dimer 525 ng/mLFEU (0-500) H 10/31/18 09:38 - Impressions Impressions Chest X-Ray 10/31/18 09:33 IMPRESSION: 1. Stable mild pulmonary hyperinflation which may relate to COPD. 2. Bilateral asymmetric mild peribronchial opacities suggesting bronchopneumonia more prominent on the right. No lobar pneumonia. 3. Stable calcified pleural plaques on the left which may relate to history of asbestos exposure or possible trauma. D/ / 10/31/2018 10:51:50 Gordon Andino MD / [facility] Interpreting Provider: Gordon Andino MD <Kingsley Mcmullen - Last Filed: 11/01/18 15:20> (1) Pneumonia Qualifiers: Pneumonia type: due to Pneumococcus Laterality: right Lung location: unspecified part of lung Qualified Code(s): J13 - Pneumonia due to Streptococcus pneumoniae (2) Sepsis Qualifiers: Sepsis type: sepsis due to unspecified organism Sepsis acute organ dysfunction status: without acute organ dysfunction Qualified Code(s): A41.9 - Sepsis, unspecified organism (3) CHF (congestive heart failure) Qualifiers: Heart failure type: diastolic Heart failure chronicity: chronic Qualified Code(s): I50.32 - Chronic diastolic (congestive) heart failure (4) HTN (hypertension) Qualifiers: Hypertension type: essential hypertension Qualified Code(s): I10 - Essential (primary) hypertension <Dianna Early - Last Filed: 11/01/18 15:35> (1) Sepsis Qualifiers: Sepsis type: sepsis due to unspecified organism Sepsis acute organ dysfunction status: without acute organ dysfunction Qualified Code(s): A41.9 - Sepsis, unspecified organism (2) Pneumonia Qualifiers: Pneumonia type: due to unspecified organism Laterality: right Lung location: unspecified part of lung Qualified Code(s): J18.9 - Pneumonia, unspecified organism (4) COPD (chronic obstructive pulmonary disease) Qualifiers: COPD type: unspecified COPD Qualified Code(s): J44.9 - Chronic obstructive pulmonary disease, unspecified (5) CHF (congestive heart failure) Qualifiers: Heart failure type: diastolic Heart failure chronicity: chronic Qualified Code(s): I50.32 - Chronic diastolic (congestive) heart failure
[2018-11-01] MEDS: Aspirin Enteric Coated 81 MG Tablet PO SCH (09:01)
[2018-11-01] MEDS: cefTRIAXone 1,000 MG in Water for inj. (sterile) 10 ML IVP SCH (09:02)
[2018-11-01] MEDS: *HR* OxyCODONE Immed Rel 5 MG TABLET PO PRN ×2 (09:02→18:23)
[2018-11-01] MEDS ORDERED: Azithromycin 500 MG in 0.9 % Sodium Chloride 250 ML IVPB SCH (12:00)
[2018-11-01] MEDS: Azithromycin 250 MG TABLET PO SCH (22:18)
[2018-11-02] MEDS: *HR* Heparin 5,000 UNIT/ML VIAL SQ SCH ×2 (04:30→18:24)
[2018-11-02 06:12] LABS: Basophils % 0.4 %; Eosinophils # 0.2 K/mcL (0.0-0.6); Eosinophils % 1.5 %; Hematocrit 43.5 % (37.5-50.1); Hemoglobin 14.2 g/dL (12.9-16.9); Immature Granulocytes % 0.2 % (0-4); Lymphocytes # 1.3 K/mcL (0.6-4.6); Lymphocytes % 12.7 %; Mean Corpuscular HGB Conc 32.6 g/dL (31.6-35.5); Mean Corpuscular Hemoglobin 30.6 pg (28.0-33.3); Mean Corpuscular Volume 93.8 fL (83.0-100.0); Mean Platelet Volume 11.8 fL (9.4-12.4); Monocytes # 0.8 K/mcL (0.0-1.3); Monocytes % 7.8 %; Neutrophils # 7.9 K/mcL (1.6-8.9); Platelet Count 144 K/mcL (140-400); Red Blood Count 4.64 M/mcL (4.19-5.50); Red Cell Distribution Width 13.6 % (11.5-14.5); Segmented Neutrophils % 77.4 %; White Blood Count 10.2 K/mcL (4.3-11.1)
[2018-11-02 06:32] LABS: BUN/Creatinine Ratio 18 (6-26); Blood Urea Nitrogen 16 mg/dL (8-23); Calcium 9.1 mg/dL (8.6-10.3); Carbon Dioxide 23 mEq/L (23-29); Chloride 103 mEq/L (98-107); Glucose 89 mg/dL (70-105); Osmolality,Calculated 285 (280-300); Potassium 3.7 mEq/L (3.5-5.1); Sodium 137 mEq/L (136-145); eGFR For African Americans > 60 (> 60); eGFR For Non-African Americans > 60 (> 60)
--- NOTE | 2018-11-02 08:07 | Internal Med Progress Note ---
<Kingsley Mcmullen - Last Filed: 11/02/18 13:52> Hospitalist Progress Note - Encounter Date of Encounter: 11/02/18 - Exam Vitals: Temp Pulse Resp BP Pulse Ox 98.3 F 90 16 134/57 94 11/02/18 12:28 11/02/18 12:28 11/02/18 12:28 11/02/18 12:28 11/02/18 12:28 - Assessment and Plan (1) Pneumonia Current Visit: Yes Status: Suspected (2) Sepsis Current Visit: Yes Status: Resolved (3) CHF (congestive heart failure) Current Visit: Yes Status: Chronic (4) HTN (hypertension) Current Visit: Yes Status: Chronic (5) Acute respiratory failure with hypoxia Current Visit: Yes Status: Acute - Time Spent with Patient Total time spent is greater than 50% in coordination of care (as documented) at patient's floor/unit and/or counseling patient: Internal Medicine: Result - Labs CBC & Chem 7: 11/02/18 05:58 11/02/18 05:58 Labs: Short CBC 11/02/18 Range/Units 05:58 WBC 10.2 (4.3-11.1) K/mcL Hgb 14.2 (12.9-16.9) g/dL Hct 43.5 (37.5-50.1) % Plt Count 144 (140-400) K/mcL Neutrophils # 7.9 (1.6-8.9) K/mcL BMP 11/02/18 05:58 Sodium 137 Potassium 3.7 Chloride 103 Carbon Dioxide 23 BUN 16 Creatinine 0.90 Glucose 89 Calcium 9.1 - ABG Interpretation ABG results: PT/INR, D-dimer D-Dimer 525 ng/mLFEU (0-500) H 10/31/18 09:38 Consult Discharge Plan - Plan Referrals: Zain Salgado MD [Primary Care Provider] - - Attending Attestation I examined this patient and my medical decision-making was reviewed [facility]. I agree with the documented findings, disposition and treatment plan as described except to the extent set forth below. <Dianna Early - Last Filed: 11/02/18 15:00> Hospitalist Progress Note - Encounter Date of Encounter: 11/02/18 Time of Encounter: 08:07 - Subjective Interval History: Mr. Harris was seen and evaluated at the bedside this morning. He reports increased sputum production, but states that his breathing has continued to improve overall. Overnight, patient was transitioned to oral azithromycin after temporarily losing IV access. Nursing staff reports no other significant overnight events, and patient denies any other complaints or concerns today. - Exam Vitals: Temp Pulse Resp BP Pulse Ox 98.5 F 87 18 158/84 96 11/02/18 07:47 11/02/18 07:47 11/02/18 07:47 11/02/18 07:47 11/02/18 07:47 Exam: GENERAL: Well-developed, well-nourished adult male resting in bed comfortably and in no acute distress. HEENT: Atraumatic and normocephalic. Nasal cannula in place. CARDIOVASCULAR: Regular rate and rhythm. S1 and S2 present. Systolic murmur present. RESPIRATORY: Diffusely decreased breath sounds bilaterally with fine crackles in bilateral posterior lung avery. Chest rises and falls symmetrically without accessory muscle use. GASTROINTESTINAL: Abdomen is soft, nontender, nondistended. EXTREMITIES: No clubbing, cyanosis, or edema. SKIN: Warm, dry, and intact. NEUROLOGIC: Alert and oriented x3. Patient is cooperative with exam and answers questions appropriately. No apparent focal deficits. PSYCHIATRIC: Appropriate mood and affect. - Assessment and Plan (1) Acute respiratory failure with hypoxia Current Visit: Yes Status: Acute Assessment and Plan: Improving. Likely secondary to pneumonia. Chest x-ray on 10/31/2018 demonstrated bilateral asymmetric mild peribronchial opacities suggestive of bronchopneumonia. Patient was also noted to have stable mild pulmonary hyperinflation, as well as stable calcified pleural plaques on the left, possibly relating to a history of asbestos exposure versus possible trauma. - Continue antimicrobial therapy for pneumonia. - Start prednisone 40 mg daily. - Pulmonology consult placed for evaluation and further recommendations r egarding abnormal chest x-ray findings. (2) Pneumonia Current Visit: Yes Status: Suspected Assessment and Plan: Chest x-ray demonstrated findings consistent with bronchopneumonia. Patient was placed on antimicrobial therapy with a azithromycin and Rocephin, and appears to be improving. - Continue azithromycin 500mg daily. - Continue rocephin; anticipate transition to appropriate PO antimicrobial jcarlos rrow in anticipation of hospital discharge. (3) COPD (chronic obstructive pulmonary disease) Current Visit: Yes Status: Chronic Assessment and Plan: History of COPD. - Continue supplemental oxygen as above. - Continue use of albuterol inhaler PRN. (4) CHF (congestive heart failure) Current Visit: Yes Status: Chronic Assessment and Plan: History of congestive heart failure, with LVEF 50-55% as of echocardiogram on 03/22/2017. Patient does not appear to be having an acute exacerbation, and appears to be euvolemic. - Continue to monitor strict I's and O's and daily weights. - Continue home medication of spironolactone. (5) DVT prophylaxis Current Visit: Yes Status: Acute Assessment and Plan: - Heparin 5000units Q12H. - Time Spent with Patient Total time spent is greater than 50% in coordination of care (as documented) at patient's floor/unit and/or counseling patient: Internal Medicine: Result - Labs CBC & Chem 7: 11/02/18 05:58 11/02/18 05:58 Labs: Short CBC 11/02/18 Range/Units 05:58 WBC 10.2 (4.3-11.1) K/mcL Hgb 14.2 (12.9-16.9) g/dL Hct 43.5 (37.5-50.1) % Plt Count 144 (140-400) K/mcL Neutrophils # 7.9 (1.6-8.9) K/mcL BMP 11/02/18 05:58 Sodium 137 Potassium 3.7 Chloride 103 Carbon Dioxide 23 BUN 16 Creatinine 0.90 Glucose 89 Calcium 9.1 - ABG Interpretation ABG results: PT/INR, D-dimer D-Dimer 525 ng/mLFEU (0-500) H 10/31/18 09:38 <Kingsley Mcmullen - Last Filed: 11/02/18 13:52> (1) Pneumonia Qualifiers: Pneumonia type: due to unspecified organism Laterality: right Lung location: unspecified part of lung Qualified Code(s): J18.9 - Pneumonia, unspecified organism (2) Sepsis Qualifiers: Sepsis type: sepsis due to unspecified organism Sepsis acute organ dysfunction status: without acute organ dysfunction Qualified Code(s): A41.9 - Sepsis, unspecified organism (3) CHF (congestive heart failure) Qualifiers: Heart failure type: diastolic Heart failure chronicity: chronic Qualified Code(s): I50.32 - Chronic diastolic (congestive) heart failure (4) HTN (hypertension) Qualifiers: Hypertension type: essential hypertension Qualified Code(s): I10 - Essential (primary) hypertension <Dianna Early - Last Filed: 11/02/18 15:00> (2) Pneumonia Qualifiers: Pneumonia type: due to unspecified organism Laterality: right Lung location: unspecified part of lung Qualified Code(s): J18.9 - Pneumonia, unspecified organism (3) COPD (chronic obstructive pulmonary disease) Qualifiers: COPD type: unspecified COPD Qualified Code(s): J44.9 - Chronic obstructive pulmonary disease, unspecified (4) CHF (congestive heart failure) Qualifiers: Heart failure type: diastolic Heart failure chronicity: chronic Qualified Code(s): I50.32 - Chronic diastolic (congestive) heart failure
[2018-11-02] MEDS: cefTRIAXone 1,000 MG in Water for inj. (sterile) 10 ML IVP SCH (09:02)
[2018-11-02] MEDS: Aspirin Enteric Coated 81 MG Tablet PO SCH (09:02)
[2018-11-02] MEDS: Azithromycin 250 MG TABLET PO SCH (09:06)
[2018-11-02] MEDS: predniSONE 20 MG TABLET PO SCH (12:27)
[2018-11-02] MEDS: Spironolactone 25 MG TABLET PO SCH (12:27)
[2018-11-02] MEDS: amLODIPine 5 MG TABLET PO SCH (12:27)
[2018-11-02] MEDS: *HR* OxyCODONE Immed Rel 5 MG TABLET PO PRN (15:05)
[2018-11-03 03:58] LABS: Basophils % 0.2 %; Hematocrit 46.2 % (37.5-50.1); Hemoglobin 15.4 g/dL (12.9-16.9); Immature Granulocytes % 0.3 % (0-4); Lymphocytes # 1.1 K/mcL (0.6-4.6); Lymphocytes % 12.5 %; Mean Corpuscular HGB Conc 33.3 g/dL (31.6-35.5); Mean Corpuscular Hemoglobin 30.6 pg (28.0-33.3); Mean Corpuscular Volume 91.7 fL (83.0-100.0); Mean Platelet Volume 12.6 fL (9.4-12.4); Monocytes # 0.5 K/mcL (0.0-1.3); Monocytes % 5.9 %; Neutrophils # 7.4 K/mcL (1.6-8.9); Platelet Count 187 K/mcL (140-400); Red Blood Count 5.04 M/mcL (4.19-5.50); Red Cell Distribution Width 13.2 % (11.5-14.5); Segmented Neutrophils % 81.1 %; White Blood Count 9.1 K/mcL (4.3-11.1)
[2018-11-03 04:20] LABS: BUN/Creatinine Ratio 21 (6-26); Blood Urea Nitrogen 20 mg/dL (8-23); Calcium 9.6 mg/dL (8.6-10.3); Carbon Dioxide 21 mEq/L (23-29); Chloride 102 mEq/L (98-107); Glucose 121 mg/dL (70-105); Osmolality,Calculated 288 (280-300); Potassium 3.6 mEq/L (3.5-5.1); Sodium 137 mEq/L (136-145); eGFR For African Americans > 60 (> 60); eGFR For Non-African Americans > 60 (> 60)
[2018-11-03] MEDS: *HR* Heparin 5,000 UNIT/ML VIAL SQ SCH (04:32)
[2018-11-03 07:22] VITALS: BP 144/71
[2018-11-03] MEDS: *HR* OxyCODONE Immed Rel 5 MG TABLET PO PRN (07:45)
[2018-11-03] MEDS: Aspirin Enteric Coated 81 MG Tablet PO SCH (08:51)
[2018-11-03] MEDS: Spironolactone 25 MG TABLET PO SCH (08:51)
[2018-11-03] MEDS: amLODIPine 5 MG TABLET PO SCH (08:51)
[2018-11-03] MEDS: Azithromycin 250 MG TABLET PO SCH (08:51)
[2018-11-03] MEDS: predniSONE 20 MG TABLET PO SCH (08:51)
[2018-11-03] MEDS: cefTRIAXone 1,000 MG in Water for inj. (sterile) 10 ML IVP SCH (09:05)
--- NOTE | 2018-11-03 10:37 | Pulmonology Consult Note ---
<Jim Hunter - Last Filed: 11/03/18 14:38> Date of Encounter: 11/03/18 Time of Encounter: 10:27 Assessment and Plan (1) Pleural plaque Status: Acute Pleural Plaque - Noted on CXR - Stable from previous imaging. 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 Plan: - CT chest to evaluate plaque, can be done outpatient - Follow-up in pulm clinic - Likely stable, plan to monitor (2) Pneumonia Status: Suspected Bronchopneumonia - Mangement per fprimary - Agree with Abx Qualifiers: Pneumonia type: due to unspecified organism Laterality: unspecified laterality Lung location: unspecified part of lung Qualified Code(s): J18.9 - Pneumonia, unspecified organism (3) COPD (chronic obstructive pulmonary disease) Status: Chronic Hx of COPD - Chronic bronchitis - reports flair every 4-5 years Plan: - Six minute walk test ordered - Finish prednisone course - Albuterol PRN Qualifiers: COPD type: unspecified COPD Qualified Code(s): J44.9 - Chronic obstructive pulmonary disease, unspecified (4) CHF (congestive heart failure) Status: Chronic Management per primary Qualifiers: Heart failure type: diastolic Heart failure chronicity: chronic Qualified Code(s): I50.32 - Chronic diastolic (congestive) heart failure (5) Acute respiratory failure with hypoxia Status: Acute Resp failure - Secondary to bronchopneumonia Plan: - As above for PNA and COPD History of Present Illness Consult date: 11/02/18 History of present illness: Mr. Rick Harris is a 78-year-old male with past medical history of hypertension, CHF, hyperlipidemia who presented for upper extremity shaking and dyspnea. Patient states that he was beginning to feel like he is developing pneumonia and worsening shortness of breath and a cough with occasional white sputum production. He also had an associated fever. He denied any chest pain, headaches, nausea, vomiting, constipation, or diarrhea. Patient reports any history of chronic bronchitis and every 4-5 years he has a flareup. 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 Reports having history of exposure to asbestos. In the ED patient was febrile at 100.9, tachycardic at 126, tachypneic at 20, blood pressure is 137/70, saturating 94% on room air. Labs were significant for leukocytosis at 13.5, d-dimer 525, and procalcitonin at 2.54. Chest x-ray showed bilateral asymmetric mild peribronchial opacity suggesting pneumonia more prominent on the right, no lobar pneumonia. Also stable calcified pleural plaques on the left. Patient was admitted and treated for sepsis, pneumonia and COPD. Pulmonology was consulted for evaluation and further recommendations regarding abnormal chest x-ray findings. Patient was seen and is sitting comfortably in chair next to bed. States that he will be discharged following pulmonary consult. Patient states he was unaware of any history of pleural plaques. Past Med Surg Social Fam HX - Past Medical History Medical history: arthritis, COPD, hypertension Additional medical history: chronic back pain Psychiatric history: no psych history - Past Surgical History Surgical History: orthopedic, other (Right knee arthroscopy; Left knee arthroscopy/total left knee replacement 2005; C5-C6 discectomy 2004; Left biceps tendon repair 2008) Additional surgical history: L knee. neck - Social History Smoking Status: Never smoker Smokeless Tobacco Status: No Alcohol use: none Drug use: none - Family History Mother Living Status: Age at : 66 Cause of : CA Hx Family Cancer: Yes Hx Family Medical Disorders: Yes Medications and Allergies Albuterol Sulfate [Proair Hfa] 2 puff IH Q4H PRN 07/09/16 [History] Amlodipine Besylate 10 mg PO DAILY 07/09/16 [History] Aspirin [Lo-Dose Aspirin EC] 81 mg PO DAILY 07/09/16 [History] OxyCODONE/APAP 10/325 [Percocet 10/325 MG] 1 tab PO TID PRN 07/09/16 [History] Zolpidem Tartrate 5 mg PO HS PRN 07/09/16 [History] Atorvastatin [Lipitor] 40 mg PO HS 10/31/18 [History] Citalopram Hydrobromide [Citalopram HBr] 40 mg PO DAILY 10/31/18 [History] Spironolactone [Aldactone] 25 mg PO DAILY 10/31/18 [History] Amoxicillin/Clavulanate [Augmentin] 875 mg PO BID 4 Days #8 tablet 11/03/18 [Rx] predniSONE [PredniSONE] 40 mg PO DAILY 4 Days #4 tablet 11/03/18 [Rx] Allergy/AdvReac Type Severity Reaction Status Date / Time No Known Allergies Allergy Verified 10/31/18 19:45 All Systems: The remainder of the systems were reviewed and are negative Review of Systems: Constitutional: Denies fevers, chills, weight loss, generalized fatigue Head/Neck: Denies [place], neck stiffness EENT: Denies vision changes/blurriness, rhinorrhea, congestion, sore throat CVS: Denies chest pain, palpitations, SAPP, orthopnea, edema, PND Pulm: Reports SOB, cough, occasional sputum production. Denies hemoptysis, wheezing GI: Denies abdominal pain, nausea, vomiting, diarrhea, constipation, melena, hematemasis : Denies dysuria, increased frequency, urgency, hematuria Heme: Denies ease of bleeding or bruising MSK: Denies joint pain, limited ROM Skin: Denies rashes, ulcers, color changes Neuro: Denies [place], paresthesias, focal deficits, ataxia Physical Examination Vital Signs: Vital Signs, Last 4 Hours Temp Pulse Resp BP Pulse Ox 11/03/18 07:20 97.5 F L 88 16 144/71 96 Gen: Vitals noted. No acute distress. Eyes: anicteric sclerae, moist conjunctivae. Pupils equal, round, and reactive to light HENT: Atraumatic, normocephalic; oropharynx clear with moist mucous membranes and no mucosal ulcerations Neck: Trachea midline; supple, no thyromegaly or lymphadenopathy Cardiac: RRR, soft systolic murmur, no rubs or gallops, S1/S2 Pulmonary: Left lower lobe ronchi. No wheezes or crackles. equal chest expansion Abdomen: soft, nontender, no rigidity or guarding. No masses or hepatosplenomegaly MSK: ROM intact, no joint swelling noted Extremities: no BLE edema, nontender calf, no cyanosis or clubbing Skin: Normal temperature, turgor and texture; no rash, ulcers or subcutaneous nodules Neuro: moves all extremities, no focal deficits. Psych: Appropriate mood and behavior. A&Ox3 Results - Laboratory Findings CBC and BMP: 11/03/18 03:02 11/03/18 03:02 PT/INR, D-dimer D-Dimer 525 ng/mLFEU (0-500) H 10/31/18 09:38 Abnormal lab findings: Abnormal lab results WBC 12.7 K/mcL (4.3-11.1) H 11/01/18 06:41 Plt Count 139 K/mcL (140-400) L 11/01/18 06:41 MPV 12.6 fL (9.4-12.4) H 11/03/18 03:02 Neutrophils # 10.0 K/mcL (1.6-8.9) H 11/01/18 06:41 D-Dimer 525 ng/mLFEU (0-500) H 10/31/18 09:38 Carbon Dioxide 21 mEq/L (23-29) L 11/03/18 03:02 Glucose 121 mg/dL (70-105) H 11/03/18 03:02 Alkaline Phosphatase 28 Units/L (34-104) L 10/31/18 09:38 Troponin I 0.04 ng/mL (< 0.04) H* 10/31/18 16:28 Procalcitonin 2.54 ng/mL (0.00-0.15) H 10/31/18 13:15 Ur Specific Branch 1.027 (1.010-1.025) H 10/31/18 09:57 - Clinical Findings Intake & Output: Intake & Output 11/02/18 11/03/18 11/03/18 23:59 07:59 15:59 Intake Total 240 / 480 Balance 240 / 480 Weight 101.3 kg Consult Discharge Plan - Plan Instructions: Prednisone (By mouth), Amoxicillin/Clavulanate Potassium (By mouth), Heart Failure (DC), Chronic Obstructive Pulmonary Disease (DC), Sepsis (DC), Chronic Hypertension (DC) Additional Instructions: Please take Augmentin 875mg every 12 hours for 4 days to finish your antibiotic course. Please continue Prednisone 40mg once daily for 4 days. Please continue home medications as instructed. Please follow up with Dr. Mora, pulmonology, in 4-6 weeks. Please complete a chest CT exam prior to your appointment with pulmonology. Please follow up with PCP regarding your recent hospital stay within 5-7 days. Please return to the emergency department if you experience fevers, chills, chest pain, shortness of breath, blood in stool or urine, or any other concerning or worsening symptoms. Referrals: Zain Salgado MD [Primary Care Provider] - 11/05/18 1:15 pm (Please f/u within 5-7 days of discharge. Patient instructed to complete 4 days course of augmentin 875mg q12h (total antibiotic course of 7 days, including inpatient azithromycin and rocephin). Also instrucetd to finish 4 more days of prednisone 40mg once daily. Patient has also been instructed to follow up with Dr. Mora, pulmonology, in 46 weeks. Patient needs a chest CT prior to his pulmonology appointment. ) Marine Mora MD [Partnered Physician] - (Dr. Plummer office will contact patient with an appointment date and time) Prescriptions: Amoxicillin/Clavulanate [Augmentin] 875 mg PO BID 4 Days #8 tablet predniSONE [PredniSONE] 40 mg PO DAILY 4 Days #4 tablet <Marine Mora - Last Filed: 11/04/18 06:14> Date of Encounter: 11/03/18 All Systems: The remainder of the systems were reviewed and are negative Physical Examination Vital Signs: Vital Signs, Last 4 Hours Resp Pulse Ox 11/03/18 16:10 18 95 Results - Laboratory Findings CBC and BMP: 11/03/18 03:02 11/03/18 03:02 PT/INR, D-dimer D-Dimer 525 ng/mLFEU (0-500) H 10/31/18 09:38 Abnormal lab findings: Abnormal lab results WBC 12.7 K/mcL (4.3-11.1) H 11/01/18 06:41 Plt Count 139 K/mcL (140-400) L 11/01/18 06:41 MPV 12.6 fL (9.4-12.4) H 11/03/18 03:02 Neutrophils # 10.0 K/mcL (1.6-8.9) H 11/01/18 06:41 D-Dimer 525 ng/mLFEU (0-500) H 10/31/18 09:38 Carbon Dioxide 21 mEq/L (23-29) L 11/03/18 03:02 Glucose 121 mg/dL (70-105) H 11/03/18 03:02 Alkaline Phosphatase 28 Units/L (34-104) L 10/31/18 09:38 Troponin I 0.04 ng/mL (< 0.04) H* 10/31/18 16:28 Procalcitonin 2.54 ng/mL (0.00-0.15) H 10/31/18 13:15 Ur Specific Branch 1.027 (1.010-1.025) H 10/31/18 09:57 - Clinical Findings Intake & Output: Intake & Output 11/03/18 11/03/18 11/03/18 07:59 15:59 23:59 Weight 101.3 kg - Attending Attestation I examined this patient and my medical decision-making was reviewed with the Resident Physician. I agree with the documented findings, disposition and treatment plan as described except to the extent set forth below. Patient seen and examined. Labs, radiology, chart personally reviewed. Agree with resident's history and physical, assessment, plan with following comments: LEAK INSPECTOR: Patient follows commands, Pulmonary: Acceptable oxygenation and ventilation. Patient has significant history of asbestos exposure and this could be just benign pleural plaques and no evidence of any mesothelioma. Patient is feeling much better now and concern about days oxygen level. Recommend patient to have 6 minute walk before discharge for qualification for oxygen. Again patient is feeling better on current treatment and he denies any previous history of smoking which makes risk of lung cancer gas in patient with exposure to asbestos in the past. Patient can follow-up as outpatient and perhaps pulmonary function test needs to be done to check level of his vital capacity. Thank you for consultation please call for any questions.
--- NOTE | 2018-11-03 10:51 | Discharge Summary ---
<Darlene Agustin - Last Filed: 11/03/18 14:54> - NOTES TO OUTPATIENT PROVIDER Notes to Outpatient Provider: Mr. Harris is a 78M who was admitted for shakiness and shortness of breath. He was treated for pneumonia. He is being discharged on 11/03/18 to home with instructions to: - Complete a total 7 day an tibiotic course, prescription for Augmentin 875 mg every 12 hours for 4 days. - Prescription for prednisone 40 mg once daily for 4 days. - Patient has been instructed to follow-up with PCP in 57 days. - Please complete Chest CT prior to pulmonogy appt. - Patient has been instructed to follow-up with Dr. Mora, pulmonology, in 46 weeks Orders not resulted at time of discharge: Pending orders 10/31/18 09:50 Culture,Blood [BC] Stat Date of Encounter: 11/03/18 Time of Encounter: 10:47 - Discharge Diagnosis (1) Acute respiratory failure with hypoxia Priority: Primary Status: Acute (2) Pneumonia Priority: Secondary Status: Suspected Qualifiers: Pneumonia type: due to unspecified organism Laterality: unspecified laterality Lung location: unspecified part of lung Qualified Code(s): J18.9 - Pneumonia, unspecified organism (3) COPD (chronic obstructive pulmonary disease) Priority: Secondary Status: Chronic Qualifiers: COPD type: unspecified COPD Qualified Code(s): J44.9 - Chronic obstructive pulmonary disease, unspecified (4) CHF (congestive heart failure) Priority: Secondary Status: Chronic Qualifiers: Heart failure type: diastolic Heart failure chronicity: chronic Qualified Code(s): I50.32 - Chronic diastolic (congestive) heart failure Hospital course: Mr. Harris is a 78 year old male who presented on 10/31/18 with shortness of breath, nonproductive cough and shakiness for 3 days. PMH significant for COPD (not on home O2), hypertension, CHF, hyperlipidemia, arthritis. In the ED, EKG showed sinus tachycardia, lactic acid 1.2, UA negative, CXR showed bilateral bronchopneumonia more prominent on the right, stable calcified pleural plaques on the left. He had an episode of desaturation to 86% SpO2 on 2 L oxygen when he ambulated to go to the bathroom. Legionella and strep pneumonia antigens were negative. Patient was started on azithromycin and Rocephin. Patient's symptoms gradually improved. His breathing improved on 3 L oxygen. Pulmonology was consulted to evaluate the presence of stable pleural plaques. Patient discharged on 11/03/18 with prescriptions for Augmentin 875 mg to be taken every 12 hours for 4 days, and prednisone 40 mg to be taken once daily for 4 days. Patient has also been instructed to follow up with his PCP in 5-7 days as well as see Dr. Mora, pulmonology, in 4-6 wks. Patient will need a chest CT prior to pulmonology appointment. - Time Spent with Patient Total time spent providing and/or coordinating discharge services: - Discharge Medications Prescriptions: New Amoxicillin/Clavulanate [Augmentin] 875 mg PO BID 4 Days #8 tablet predniSONE [PredniSONE] 40 mg PO DAILY 4 Days #4 tablet Continued Albuterol Sulfate [Proair Hfa] 2 puff IH Q4H PRN PRN Reason: cough Zolpidem Tartrate 5 mg PO HS PRN PRN Reason: Insomnia Aspirin [Lo-Dose Aspirin EC] 81 mg PO DAILY OxyCODONE/APAP 10/325 [Percocet 10/325 MG] 1 tab PO TID PRN PRN Reason: Pain Amlodipine Besylate 10 mg PO DAILY Spironolactone [Aldactone] 25 mg PO DAILY Atorvastatin [Lipitor] 40 mg PO HS Citalopram Hydrobromide [Citalopram HBr] 40 mg PO DAILY Home Medications: Albuterol Sulfate [Proair Hfa] 2 puff IH Q4H PRN 07/09/16 [History] Amlodipine Besylate 10 mg PO DAILY 07/09/16 [History] Aspirin [Lo-Dose Aspirin EC] 81 mg PO DAILY 07/09/16 [History] OxyCODONE/APAP 10/325 [Percocet 10/325 MG] 1 tab PO TID PRN 07/09/16 [History] Zolpidem Tartrate 5 mg PO HS PRN 07/09/16 [History] Atorvastatin [Lipitor] 40 mg PO HS 10/31/18 [History] Citalopram Hydrobromide [Citalopram HBr] 40 mg PO DAILY 10/31/18 [History] Spironolactone [Aldactone] 25 mg PO DAILY 10/31/18 [History] Amoxicillin/Clavulanate [Augmentin] 875 mg PO BID 4 Days #8 tablet 11/03/18 [Rx] predniSONE [PredniSONE] 40 mg PO DAILY 4 Days #4 tablet 11/03/18 [Rx] Allergies/Adverse Reactions: Allergy/AdvReac Type Severity Reaction Status Date / Time No Known Allergies Allergy Verified 10/31/18 19:45 Date of admission: 10/31/18 12:49 Primary care physician: Zain Salgado MD Consults: 11/02/18 14:53 Consult to Pulmonology [CONS] Routine Consulting Provider: [facility] Reason for Consult: History of chronic bronchitis; chest x-ray shows calcified pleural plaques. 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 Time Notified: 14:54 Call Completed: No Discharging clinician: Darlene Agustin - Constitutional Vitals: Temp Pulse Resp BP Pulse Ox 97.5 F L 88 16 144/71 96 11/03/18 07:20 11/03/18 07:20 11/03/18 07:20 11/03/18 07:20 11/03/18 07:20 General appearance: Present: A&O X 3, no acute distress, obese Exam: GENERAL: Well-developed, well-nourished adult male resting in bed comfortably and in no acute distress. HEENT: Atraumatic and normocephalic. Nasal cannula in place. CARDIOVASCULAR: Regular rate and rhythm. S1 and S2 present. Systolic murmur present. RESPIRATORY: Diffusely decreased breath sounds bilaterally with fine crackles in bilateral posterior lung avery. Chest rises and falls symmetrically without accessory muscle use. GASTROINTESTINAL: Abdomen is soft, nontender, nondistended. EXTREMITIES: No clubbing, cyanosis, or edema. SKIN: Warm, dry, and intact. NEUROLOGIC: Alert and oriented x3. Patient is cooperative with exam and answers questions appropriately. No apparent focal deficits. PSYCHIATRIC: Appropriate mood and affect. - Patient Status Disposition: Home, Self-Care Condition: Good Functional capacity at discharge: independent ambulation Overall status at discharge: patient is progressing back to baseline - Discharge Instructions Instructions: Prednisone (By mouth), Amoxicillin/Clavulanate Potassium (By mouth), Heart Failure (DC), Chronic Obstructive Pulmonary Disease (DC), Sepsis (DC), Chronic Hypertension (DC) Follow Up With: Zain Salgado MD [Primary Care Provider] - 11/05/18 1:15 pm (Please f/u within 5-7 days of discharge. Patient instructed to complete 4 days course of augmentin 875mg q12h (total antibiotic course of 7 days, including inpatient azithromycin and rocephin). Also instrucetd to finish 4 more days of prednisone 40mg once daily. Patient has also been instructed to follow up with Dr. Mora, pulmonology, in 46 weeks. Patient needs a chest CT prior to his pulmonology appointment. ) Marine Mora MD [Partnered Physician] - (Dr. Plummer office will contact patient with an appointment date and time) Additional Instructions: Please take Augmentin 875mg every 12 hours for 4 days to finish your antibiotic course. Please continue Prednisone 40mg once daily for 4 days. Please continue home medications as instructed. Please follow up with Dr. Mora, pulmonology, in 4-6 weeks. Please complete a chest CT exam prior to your appointment with pulmonology. Please follow up with PCP regarding your recent hospital stay within 5-7 days. Please return to the emergency department if you experience fevers, chills, chest pain, shortness of breath, blood in stool or urine, or any other concerning or worsening symptoms. - Diet and Activity Activity: resume usual activities as tolerated Diet: low salt diet <Kingsley Mcmullen - Last Filed: 11/03/18 18:09> Orders not resulted at time of discharge: Pending orders 10/31/18 09:50 Culture,Blood [BC] Stat Date of Encounter: 11/03/18 - Discharge Diagnosis (1) Pneumonia Status: Suspected Qualifiers: Pneumonia type: due to unspecified organism Laterality: unspecified laterality Lung location: unspecified part of lung Qualified Code(s): J18.9 - Pneumonia, unspecified organism (2) Sepsis Status: Resolved Qualifiers: Sepsis type: sepsis due to unspecified organism Sepsis acute organ dysfunction status: without acute organ dysfunction Qualified Code(s): A41.9 - Sepsis, unspecified organism (3) CHF (congestive heart failure) Status: Chronic Qualifiers: Heart failure type: diastolic Heart failure chronicity: chronic Qualified Code(s): I50.32 - Chronic diastolic (congestive) heart failure (4) HTN (hypertension) Status: Chronic Qualifiers: Hypertension type: essential hypertension Qualified Code(s): I10 - Essential (primary) hypertension (5) Acute respiratory failure with hypoxia Status: Acute Hospital course: Mr. Harris is a 78 year old male - Time Spent with Patient Total time spent providing and/or coordinating discharge services: Date of admission: 10/31/18 12:49 Primary care physician: Zain Salgado MD Consults: 11/02/18 14:53 Consult to Pulmonology [CONS] Routine Consulting Provider: Pulm [facility] Reason for Consult: History of chronic bronchitis; chest x-ray shows calcified pleural plaques. 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 Time Notified: 14:54 Call Completed: No - Constitutional Vitals: Temp Pulse Resp BP Pulse Ox 97.5 F L 88 18 144/71 95 11/03/18 07:20 11/03/18 07:20 11/03/18 16:10 11/03/18 07:20 11/03/18 16:10 - Attending Attestation examined this patient and my medical decision-making was reviewed with the resident physician. I agree with the documented findings, disposition and treatment plan as described except to the extent set forth below.
--- NOTE | 2018-11-03 15:12 | Electrocardiograph Report ---
[facility] Test Date: 2018-10-31 Pat Name: Rick Harris Department: [id number] Room: 2N2 Gender: M Student Assistance Counselor: : 1940 Requested By: Fabiola Stratton Order Number: [id number] Reading MD: Ian Ding Measurements Intervals [place] Rate: 117 P: SC: QRS: 54 QRSD: 105 T: -66 QT: 296 QTc: 413 Interpretive Statements Sinus tachycardia Repol abnrm suggests ischemia, lateral leads Electronically Signed On 11-03-2018 15:10:36 EDT by Ian Ding
== END 2018-11-03 17:38 | disposition home or self-care (01) | DRG 871 ==
LOC: EMEROOARM 09:11 → 2NENU 09:11 → SUATTDRO 12:49
PROVIDERS: ADMIT Internal Medicine; ATTEND Student in an Organized Health Care Education/Training Program